=== PATIENT | female | born 1975 | race Caucasian/White ===

== ENCOUNTER 2020-01-22 15:49 | Outpatient (CLI) | payer OTHER, SELFPAY ==
--- NOTE | 2020-01-22 15:57 | MR_ITS ---
WS: [id number] MRI RIGHT KNEE NONCONTRAST TECHNIQUE: Axial PD, coronal PD fat sat, coronal PD, sagittal PD, and sagittal PD fat-sat images obta ined. CLINICAL INFORMATION: INJURY OF RIGHT KNEE COMPARISON: None. FINDINGS: Distal quadriceps and patella tendons are intact. Hypertrophic patella. Hypertrophic changes along th e joint line. Advanced degenerative arthritis both knees medial and lateral compartment narrowing. Butler bchondral cystic change with edema along the tibial spines. Small suprapatellar effusion. ACL is not visualized and chronically torn. Normal PCL. Subchondral cystic change along the posterior medial tib ial plateau. Soft tissue edema along the popliteal fossa. Medial and lateral collateral ligaments are intact. Small horizontal tear along the posterior horn lateral meniscus extending to the articular surface. C hronic thinning of the medial and lateral meniscus worse in the medial meniscus. Blunting of the ante rior and posterior horn medial meniscus with chronic tearing and advanced chondromalacia. Loss of the medial meniscus with near [id number] articulation along the medial compartment. Grade III chondromalacia patella. Moderate to advanced narrowing patellofemoral articulation. MR/MR knee RT wo con* [id number] IMPRESSION: 1. Advanced degenerative arthritis right knee with medial and lateral compartm ent narrowing worse in the medial compartment with subchondral edema and cystic change. 2. PCL is normal. ACL is absent and chronically torn. 3. Advanced chondromalacia patella. 4. Small suprapatellar effusion 5. Small tear involving the posterior horn lateral meniscus. Near complete los s of the medial meniscus with chronic tearing.
== END 2020-01-22 15:50 | disposition home or self-care (01) ==
LOC: RADWPI 15:53
PROVIDERS: Family Provider Anesthesiology; Visit Provider Nurse Practitioner
DX: S89.91XA Unspecified injury of right lower leg, initial encounter (principal); X58.XXXA Exposure to other specified factors, initial encounter; M17.11 Unilateral primary osteoarthritis, right knee; M22.41 Chondromalacia patellae, right knee; M25.461 Effusion, right knee; S83.281A Other tear of lateral meniscus, current injury, right knee, initial encounter
CPT/HCPCS: 73721

== ENCOUNTER → 2020-01-29 11:30 | Outpatient (BNVA) | payer OTHER, SELFPAY | PROVIDERS: Family Provider Anesthesiology; Referring Provider Nurse Practitioner; Visit Provider Specialist | DX: M25.561 Pain in right knee (principal); M17.11 Unilateral primary osteoarthritis, right knee | CPT/HCPCS: 73560; 73565 ==

== ENCOUNTER 2020-12-31 13:00 | Outpatient (CLI) | payer OTHER, SELFPAY ==
--- NOTE | 2020-12-31 13:04 | MM_ITS ---
WS: [id number] BILATERAL SCREENING DIGITAL MAMMOGRAM WITH CAD HISTORY: SCREENING COMPARISON: 12/11/2017 and 11/30/2016 Bilateral CC and MLO views submitted. Computer aided detection analyzed. Breast composition: The breasts are heterogeneously dense, which may obscure small masses. No suspici ous masses, microcalcifications or architectural distortion. Scattered asymmetries and a few benign c alcifications within each breast. MM/[place] [id number] IMPRESSION: BI-RADS: 2-Benign FOLLOW UP: 1 Year Follow-up
== END 2020-12-31 13:01 | disposition home or self-care (01) ==
LOC: RADSHAW 13:03
PROVIDERS: PCP Nurse Practitioner; Visit Provider Nurse Practitioner
DX: Z12.31 Encounter for screening mammogram for malignant neoplasm of breast (principal)
CPT/HCPCS: 77067

== ENCOUNTER 2023-07-23 09:56 | Emergency (ER) | payer OTHER, SELFPAY ==
[2023-07-23 10:19] VITALS: BP 151/103; PULSE 81; RESP 16; TEMP 36.7; O2SAT 100; BMI 36.8
--- NOTE | 2023-07-23 11:15 | ED_ITS ---
HPI - Extremity Problem General: Chief complaint: Extremity Injury, Upper Stated complaint: left hand/arm laceration History of Present Illness: 47-year-old female presents emergency department with complaints of a laceration to her left arm. She states she was carrying a glass dish down the stairs when she slipped falling causing the glass dish to lacerate her left arm. She does have superficial abrasions to her left ring finger and left middle finger. Her laceration to her left arm and to the posterior aspect medial to the elbow is approximately 8 inches in length with 5 mm depth. Review of Systems General: Reports: 10 or more systems reviewed and unremarkable except in HPI and below Skin/Breast: Reports: other (Laceration) PFSH ED PFSH: Surgical History Hx of arthroscopy of right knee Family History Mother Diabetes Father Diabetes Other CAD (coronary artery disease) Stroke Social History Smoking and tobacco/nicotine status: never used tobacco/nicotine Alcohol intake: never Substance/Drug Use: never Physical Exam Narrative: EXAM NARRATIVE: Constitutional: the patient appears well nourished and with normal development. Vital signs reviewed as documented. HENMT: Normocephalic, atraumatic. Extermal ears with normal appearance without drainage. Nose without drainage, normal appearance. Mucus membranes moist. Neck is supple, No jugular venous distension, trachea is midline, no appreciable carotid bruits. No lymphadenopathy. No meningeal signs. Flexion, extension and lateral rotation is without pain. Eyes: Pupils are equal, round, reactive to light and accommodation. No scleral icterus. Extra-ocular movement are intact. Thorax is symmetrical and with equal rise and fall with respirations. Resp: Lungs are clear to auscultation. No wheezes, rales, crackles or ronchi at present. Cardio: Regular rate and rhythm. Positive S1, S2. No appreciable murmurs, rubs or gallops. GI: Abdominal exam reveals normal bowel sounds to all quadrants. No organomegaly. No obvious palpable masses noted. No hepatomegally appreciated. Soft, nontender to palpation. Extremity: Extremities are non-edematous and both femoral and pedal pulses are 2+ and equal bilaterally. Moves all extremities well, sensation in all extremities. Left arm with 8 inch laceration. Neuro: Alert and oriented x4, person, place, time and situation. Cranial nerves II through XII are grossly intact, there is no focal neurological deficits that I can appreciate at present. Motor strength in the upper and lower extremities are equal and bilateral 5/5. Psych: Cooperative, calm, normal thought process, appropriate judgment. Skin: No lesions, rashes. 8 inch x 5 mm laceration to the left elbow area. Back: Symmetrical, no obvious deformity, No CVA tenderness Course Vital Signs: Vital signs: Vital Signs Temperature 98.1 F 07/23/23 10:19 Pulse Rate 81 07/23/23 10:19 Respiratory Rate 16 07/23/23 10:19 Blood Pressure 151/103 07/23/23 10:19 Pulse Oximetry 100 07/23/23 10:19 Oxygen Delivery Me thod Room Air 07/23/23 10:19 MDM - Extremity (Nontraumatic) Medical Decision Making Physical exam completed, laceration repair as noted. No radiology studies performed this visit Discharge Plan Discharge Patient Disposition: Home Clinical Impression: Laceration of arm, left, complicated Condition: Stable Prescriptions: New cephalexin 500 mg capsule 500 mg PO Q12H 10 Days Qty: 20 0RF hydrocodone-acetaminophen 5-325 mg tablet 1 tab PO Q6H Qty: 14 0RF No Action Victoza 2-Kemar 0.6 mg/0.1 mL (18 mg/3 mL) pen injector 1.8 mg SUBCUT DAILY Qty: 6 5RF hydrocortisone-pramoxine 2.5-1 % cream 1 applic WA QID PRN (Reason: hemorrhoids) Qty: 30 2RF diclofenac sodium 75 mg tablet,delayed release (DR/EC) 75 mg PO BID Discharge Orders: Discharge ED (Routine); Ordered 07/23/23 Ordered By: Bandar Sorenson Referrals: Bailey Gutiérrez FNP [Primary Care Provider] - Discharge Diet: Advance as tolerated Discharge Activity: Resume usual activity Patient Instructions: Opioid Safety, Pain Management Activity Restrictions/Additional Instructions: Activity Restrictions/Additional Instructions: Thank you for choosing [facility] for your healthcare needs today. Please realize that you were seen in the Emergency Department and that we are providing you with an emergency medical screening exam and this may not be complete and all inclusive of all the testing and or medical work-up that you may need to determine your ailment or severity of your illness. It is very important that you follow-up as instructed with your Primary care provider or Specialist for additional evaluation and to discuss your medical treatment plan. You may return to the Emergency Department should you have concerns or if your condition changes or worsens in any way. Follow-up with your primary care provider in 14 days to have your wound evaluated for possible suture removal. Coding Level of Care Code ED Rn Discharge for Feliz Keenan
[2023-07-23] MEDS: chlorhexidine gluconate 4% Btl 118 mL 1 APPLIC TOPICAL (11:30)
[2023-07-23] MEDS: lidocaine-epi 1% 20 mL INJ INJECTION (11:30)
[2023-07-23] MEDS: cephALEXin 500 mg Capsule PO (11:30)
[2023-07-23] MEDS: neomycin-poly-bacitracin oint 28 gm 1 APPLIC TOPICAL (11:31)
== END 2023-07-23 12:01 | disposition home or self-care (01) ==
PROVIDERS: Emergency Provider Internal Medicine; PCP Nurse Practitioner
DX: S51.012A Laceration without foreign body of left elbow, initial encounter (principal); W01.110A Fall on same level from slipping, tripping and stumbling with subsequent striking against sharp glass, initial encounter
CPT/HCPCS: 12006; 99283

== ENCOUNTER 2024-08-16 01:00 | Outpatient (CLI) | payer OTHER, SELFPAY ==
--- NOTE | 2024-08-16 12:50 | MM_ITS ---
WS: [id number] BILATERAL 3D TOMOSYNTHESIS DIGITAL SCREENING MAMMOGRAPHY WITH CAD CLINICAL INFORMATION: SCREENING HISTORY: Screening mammogram. No current complaints. COMPARISON: 2020 TECHNIQUE: Bilateral CC and MLO views. FINDINGS: The breasts are composed of heterogeneous fibroglandular density tissue, which can limit the detectio n of small underlying mass lesions. No suspicious mass, asymmetry, calcifications, or architectural d istortion. No evidence of malignancy. A few incidental punctate calcifications. MM/MM [facility] tomosynthesis [id number] IMPRESSION: DENSITY: The breasts are heterogeneously dense, which may obscure small masses. BI-RADS: 2 - Benign FOLLOW UP: 1 Year Follow-up Recommend return to annual screening mammography.
== END 2024-08-16 01:01 | disposition home or self-care (01) ==
PROVIDERS: PCP Nurse Practitioner; Visit Provider Nurse Practitioner
DX: Z12.31 Encounter for screening mammogram for malignant neoplasm of breast (principal); R92.333 Mammographic heterogeneous density, bilateral breasts; R92.1 Mammographic calcification found on diagnostic imaging of breast
CPT/HCPCS: 77063; 77067

== ENCOUNTER 2025-08-18 15:25 | Outpatient (CLI) | payer OTHER, SELFPAY ==
--- NOTE | 2025-08-18 15:34 | MM_ITS ---
WS: [id number] BILATERAL 3D TOMOSYNTHESIS DIGITAL SCREENING MAMMOGRAPHY WITH CAD CLINICAL INFORMATION: SCREENING MAMMOGRAM HISTORY: Screening mammogram. No current complaints. COMPARISON: 2023 TECHNIQUE: Bilateral CC and MLO views. FINDINGS: The breasts are composed of heterogeneous fibroglandular density tissue, which can limit the detection of small underlying mass lesions. No suspicious mass, asymmetry, calcifications, or architectural distortion. No evidence of malignancy. MM/MM [facility] tomosynthesis [id number] IMPRESSION: DENSITY: The breasts are heterogeneously dense, which may obscure small masses. BI-RADS: 1 - Negative FOLLOW UP: 1 Year Follow-up Recommend return to annual screening mammography.
== END 2025-08-18 15:26 | disposition home or self-care (01) ==
LOC: RAD 15:28
PROVIDERS: PCP Nurse Practitioner; Visit Provider Nurse Practitioner
DX: Z12.31 Encounter for screening mammogram for malignant neoplasm of breast (principal); R92.333 Mammographic heterogeneous density, bilateral breasts; R92.323 Mammographic fibroglandular density, bilateral breasts
CPT/HCPCS: 77063; 77067